=== PATIENT | male | born 1995 | race Caucasian/White ===

== ENCOUNTER 2021-03-15 15:14 | Emergency (ER) | payer BC ==
[2021-03-15] MEDS ORDERED: Sodium Chloride 0.9% 10 ML Syringe FLUSH PRN (17:01)
[2021-03-15] MEDS ORDERED: Sodium Chloride 0.9% 2.5 ML Syringe FLUSH PRN (17:01)
[2021-03-15] MEDS ORDERED: HYDROmorphone 1 MG/ML Syringe IVPUSH ONE ×2 (17:02→18:12)
[2021-03-15] MEDS ORDERED: Ondansetron 4 MG/2 ML SDV IVPUSH ONE (17:02)
[2021-03-15 17:56] LABS: BLOOD UREA NITROGEN,BUN 14 mg/dL (7.0-18.0); CARBON DIOXIDE,CO2 28.3 mmol/L (21.0-32.0); CHLORIDE,CL 101 mmol/L (98-107); GLUCOSE RANDOM 94 mg/dL (74-106); POTASSIUM,K 4.1 mmol/L (3.5-5.1); SODIUM,NA 137 mmol/L (136-148)
[2021-03-15] MEDS ORDERED: Ketorolac 30 MG/ML SDV IVPUSH ONE (18:12)
== END 2021-03-15 18:40 | disposition home or self-care (01) ==
LOC: MW.ED 15:14
DX: G89.18 Other acute postprocedural pain (principal); M79.605 Pain in left leg; Z88.1 Allergy status to other antibiotic agents
CPT/HCPCS: 36415; 80053; 82550; 85025; 93971; 96374; 96375; 96376; 99284; J1170; J1885; J2405

== ENCOUNTER 2023-06-25 18:47 | Emergency (ER) | payer BC ==
[2023-06-25] MEDS: HYDROmorphone 1 MG/ML Syringe IVPUSH ONE ×2 (20:17→21:47)
[2023-06-25] MEDS: methylPREDNISolone Sodium Succinate 125 MG/2 ML SDV IVPUSH ONE (20:17)
[2023-06-25] MEDS: Ketorolac 30 MG/ML SDV IVPUSH ONE (20:17)
== END 2023-06-25 22:45 | disposition home or self-care (01) ==
LOC: MW.ED 18:47
DX: M54.50 Low back pain, unspecified (principal); Z79.899 Other long term (current) drug therapy; Z88.1 Allergy status to other antibiotic agents; Z75.8 Other problems related to medical facilities and other health care
CPT/HCPCS: 73700; 96374; 96375; 96376; 99283; J1170; J1885; J2930; 99284

== ENCOUNTER 2023-07-01 15:54 | Emergency (ER) | payer BC ==
[2023-07-01] MEDS: Ketorolac 60 MG/2 ML SDV IM ONE (16:57)
[2023-07-01] MEDS: Orphenadrine 60 MG/2 ML Inj IM ONE (16:57)
[2023-07-01] MEDS: Lidocaine 4% 1 each Patch TOP PRN (16:58)
== END 2023-07-01 17:48 | disposition home or self-care (01) ==
LOC: MW.ED 15:54
DX: M54.42 Lumbago with sciatica, left side (principal); Z75.8 Other problems related to medical facilities and other health care; Z88.1 Allergy status to other antibiotic agents; Z79.899 Other long term (current) drug therapy
CPT/HCPCS: 96372; 99283; A9270; J1885; J2360